=== PATIENT | male | born 1985 | race Caucasian/White ===

== ENCOUNTER → 2019-04-12 | Outpatient (CLI) | payer OTHER ==
[~2019-04-12] MED LIST: HYDR25SUP PR
== END | disposition home or self-care (01) ==
LOC: LAB EV 11:13 → LAB SHORT 11:13
DX: L03.116 Cellulitis of left lower limb (principal)
CPT/HCPCS: 87070; 87077; 87147; 87186; 87205

== ENCOUNTER → 2020-02-21 | Outpatient (CLI) | payer OTHER ==
[2020-02-21 13:01] LABS: Source, Urine Clean Catch
[2020-02-21 13:14] LABS: Red Blood Cells, Urine 0-2 /hpf (0-2); Squamous Epithelial Cells Not Seen /hpf (Few)
[2020-02-21 13:15] LABS: Bacteria Few /hpf; Mucus Light (0-Heavy)
[2020-02-23 04:06] LABS: CHLAMYDIA TRACHOMATIS, NAA Negative (Negative); NEISSERIA GONORRHOEAE, NAA Negative (Negative)
== END | disposition home or self-care (01) ==
LOC: LAB SHORT 12:59 → LAB EV 12:59
PROVIDERS: Physician Assistant
DX: R50.9 Fever, unspecified (principal)
CPT/HCPCS: 81015; 87086; 87491; 87591